=== PATIENT | female | born 1960 | race Caucasian/White ===

== ENCOUNTER 2023-04-10 09:28 | Outpatient (CLI) | payer MEDICARE, OTHER | END 2023-04-10 09:29 | disposition home or self-care (01) | LOC: CSHMAMMO 09:28 | PROVIDERS: ATTEND Student in an Organized Health Care Education/Training Program | DX: Z13.820 Encounter for screening for osteoporosis (principal); M85.88 Other specified disorders of bone density and structure, other site; Z78.0 Asymptomatic menopausal state | CPT/HCPCS: 77063; 77067; 77080 ==

== ENCOUNTER 2025-07-03 08:53 | Outpatient (CLI) | payer MEDICARE, OTHER | END 2025-07-03 08:54 | disposition home or self-care (01) | LOC: CSHULT 08:53 | PROVIDERS: ATTEND Student in an Organized Health Care Education/Training Program | DX: R74.8 Abnormal levels of other serum enzymes (principal); K76.89 Other specified diseases of liver | CPT/HCPCS: 76705; 93976 ==